=== PATIENT | male | born 1965 | race Two or more races ===

== ENCOUNTER → 2023-11-22 08:35 | Outpatient (REF) | payer OTHER, SELFPAY | LOC: HWRAD 08:35 | PROVIDERS: ATTENDING PHYSICIAN Physical Medicine & Rehabilitation; FAMILY PHYSICIAN Family Medicine | DX: M54.6 Pain in thoracic spine (principal); M54.16 Radiculopathy, lumbar region | CPT/HCPCS: 72070; 72100 ==

== ENCOUNTER 2024-07-19 01:51 | Emergency (ER) | payer OTHER, SELFPAY ==
[2024-07-19 01:58] VITALS: BP 115/81
[2024-07-19 02:06] VITALS: BP 111/85
[2024-07-19] MEDS: NSS 1000 IV (02:10)
[2024-07-19] MEDS: ADENOCARD 6 MG IV (02:10)
[2024-07-19 02:11] VITALS: BP 116/90
[2024-07-19 02:13] LABS: % Basophils 0.3 % (0-2); % Eosinophils 1.7 % (0-6); % Immature Granulocytes 0.3 % (0-0.5); % Lymphocytes 40.5 % (20.5-51.1); % Monocytes 8.7 % (1.7-9.3); % Neutrophils 48.5 % (42.2-75.2); Absolute Eosinophils 0.2 10^3/uL (0-0.7); Absolute Lymphocytes 4.2 10^3/uL (1.2-3.4); Absolute Monocytes 0.9 10^3/uL (0.1-0.6); Absolute Neutrophils 5.1 10^3/uL (1.4-6.5); Hematocrit 46.2 % (39.0-52.0); Hemoglobin 15.6 g/dL (13.0-18.0); Mean Corp Hgb Conc. 33.8 g/dL (33.0-37.0); Mean Corpuscular Hgb 28.2 pg (27.0-31.0); Mean Corpuscular Volume 83.4 fL (80.0-94.0); Mean Platelet Volume 10.5 fL (7.4-10.4); Nucleated Red Blood Cells % 0 % (-); Platelet Count 218 10^3/uL (130-400); Red Blood Cell Count 5.54 10^6/uL (4.70-6.10); Red Cell Dist. Width 13.8 % (11.5-14.5); White Blood Cell Count 10.4 10^3/uL (4.8-10.8)
--- NOTE | 2024-07-19 02:18 | ED.GENMED ---
History of Present Illness
General
Chief Complaint: Heart Rate Problem
Source: patient and spouse
Exam Limitations: none
Time Seen by Provider: 07/19/24 02:02
Nursing documentation reviewed up to this point in time: agreed with
History of Present Illness
History of Present Illness:
59-year-old male with a past medical history of diabetes and hypertension who presents to the ER for evaluation of palpitations. Patient reports symptoms started about 2 hours ago while he was sleeping. He says he woke up with palpitations and
heart racing and he checked his heart rate and it was in the 170s. It was not improving and so he came to the ER. He says he did not have any chest pain and does not have any chest pain. No shortness of breath. Denies any dizziness or
lightheadedness. He denies any other complaints. He denies having had similar symptoms in the past. 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
Past History
Past History
ED Past Medical History: GERD, HTN and NIDDM
ED Past Surgical History: None
Social History
Tobacco: Non-smoker
Alcohol: Occasional
Living: with family
Review of Systems
Review of Systems
All Other Systems: ROS reviewed and negative except as documented in HPI and ROS
Constitutional: Denies fever
Respiratory: Denies trouble breathing
Cardiac: Reports palpitations; Denies chest pain, diaphoresis or syncope
ABD/GI: Denies abdominal pain, nausea or vomiting
: Denies flank pain
Musculoskeletal: Denies edema, neck pain or back pain
Neurological: Denies headache
Phy Exam
Physical Exam
Physical Exam:
General: Awake, alert, oriented x3; no acute distress
Head: Normocephalic, atraumatic
Eyes: Conjunctiva normal
Throat: Airway intact, handling secretions
Neck: Trachea midline, no JVD
Lungs: Clear to auscultation bilaterally, no wheezing, rales, rhonchi
Heart: Tachycardia with extensively regular rhythm, no murmurs, gallops, or rubs appreciated
Abd: Soft, non distended, nontender
Neuro: No gross deficits
Skin: no rash
Extremities: Warm and well-perfused
Scores
Heart Failure Risk
Heart Failure Risk Score: Not Applicable
Heart Score for Chest Pain Patients
STEMI patient?: Not applicable
Withdrawal Assessment of Alcohol
Withdrawal Assessment Completed?: Not applicable
Course
Orders/Labs/Results
Orders:
Orders
07/19/24 01:53
EKG [Electrocardiogram (*1)] Urgent
Reason for Study: Palpitations
EKG- Treatment ONCE
07/19/24 02:03
Adenosine [Adenocard] 18 mg .ROUTE .STK-MED ONE
07/19/24 02:07
Complete Blood Count/With Diff Urgent
Comprehensive Metabolic Panel Urgent
PTT Urgent
Prothrombin Time Urgent
07/19/24 02:09
Adenosine [Adenocard] 6 mg IV NOW STA
07/19/24 02:12
EKG [Electrocardiogram (*1)] Urgent
Reason for Study: Bradycardia / Tachycardia
EKG- Treatment ONCE
07/19/24 02:15
0.9% Sodium Chloride 1000 ml [Nss] 1,000 ml IV BOLUS
07/19/24 03:55
Electrocardiogram (*1) Urgent
Reason for Study: Bradycardia / Tachycardia
EKG- Treatment ONCE
Abnormal Lab Results
07/19/24
02:07
MPV 10.5 H fL
(7.4-10.4)
Absolute Lymphs (auto) 4.2 H 10^3/uL
(1.2-3.4)
Absolute Monos (auto) 0.9 H 10^3/uL
(0.1-0.6)
Carbon Dioxide 19 L mmol/L
(22-30)
BUN 28 H mg/dl
(9-20)
Glucose 248 H mg/dl
(70-99)
ALT 58 H U/L
(0-50)
07/19/24 02:07
07/19/24 02:07
Vital Signs
Initial and Last Documented VS:
Initial Vital Signs
Temp Pulse Resp BP Pulse Ox
36.3 C 163 18 115/81 100
07/19/24 01:58 07/19/24 01:58 07/19/24 01:58 07/19/24 01:58 07/19/24 01:58
Last Documented Vital Signs
Temp Pulse Resp BP Pulse Ox
36.3 C 105 16 101/81 97
07/19/24 01:58 07/19/24 03:00 07/19/24 03:00 07/19/24 03:00 07/19/24 03:00
MDM/Problems Addressed
Differential Diagnosis Includes:
SVT, atrial fibrillation with RVR, sinus tachycardia less likely
MDM/Problems Addressed:
59-year-old male presents with palpitations. He is tachycardic with heart rate in the 160s but rest of vitals normal. Physical exam as above. EKG shows SVT. IV placed labs sent off including a CBC and a CMP. Patient was given adenosine 6 mg x 1
and converted to normal sinus rhythm. Plan observe on telemetry pending lab work, provide IV fluids. Reassess after the above.
Labs reviewed: CBC unremarkable, CMP shows random hyperglycemia 248 otherwise no clinically significant abnormalities. Clinical reassessment heart rate 100, patient says he is asymptomatic feeling much better. Continue to monitor.
Heart rate normalized, patient asymptomatic on ED observation since adenosine. Will plan to start on low-dose beta-jc, patient already has a [employer] lab technician he plans to follow-up with his [employer] lab technician. Advised to avoid caffeine and alcohol.
Spoke about return precautions all questions answered.
*Pulse Oximetry
Patient hypoxic: no
*EKG
Interpreted by ED Provider?: Yes
Heart Rate: 168
Rate: tachycardiac
Rhythm: SVT
[place]: normal axis
Interval: normal interval
QRS Pattern: normal QRS
Ischemia: non-specific ST changes
*Critical Care Note
Total Time (30-74mins, 75-104mins- exclusive of procedures): Not Applicable
Data Reviewed
Source: patient and spouse
ED Attending Note
-
Portions of this chart may have been created with voice recognition software.� Occasional wrong word or��sound alike� substitutions may have occurred due to the inherent limitations of voice recognition software.
Discharge Plan
Departure
Patient with high blood pressure during this ER visit?: No
Discharge Problem:
SVT (supraventricular tachycardia)
Instructions: Supraventricular tachycardia (SVT)
Prescriptions:
New
metoprolol succinate [Toprol XL] 25 mg tablet extended release 24 hr
12.5 mg PO DAILY Qty: 30 0RF
No Action
lisinopril 2.5 MG tablet
2.5 mg PO QPM
repaglinide [Prandin] 1 mg Tablet
1 mg PO TID
Janumet 50-1,000 mg Tablet
1 tab PO BID
Jardiance 25 mg Tablet
25 mg PO DAILY
Referrals:
Enio Motta IV, MD [Family Provider] - Follow up in 5-7 days
Activity Restrictions/Additional Instructions:
You should follow-up with your feed mill lab technician this week after this episode and arrhythmia. If you notice that you are having palpitations again or if you are having elevated heart rate, chest pain, shortness of breath, dizziness or any other
concerning symptoms return to the emergency room immediately for reassessment. You should avoid caffeine and alcohol to help keep your heart rate down.
Thank you for visiting the Emergency Department at [facility].
1. Please schedule a follow up appointment as directed. Call first thing tomorrow morning to make an appointment.
2. If indicated, please take your medications as instructed and indicated on discharge paperwork.
3. If any of your symptoms do not improve, or persist, or become more severe within 6-12 hours, please return to the emergency department for further care.
4. Please return to the emergency department if you develop a headache, neck pain/stiffness, fever greater than 100.4F, chest pain, shortness of breath, persistent nausea, vomiting, slurred speech, difficulty walking, numbness/tingling, weakness,
signs of infection or any other symptoms that are worrisome to you.
Please call [phone] if you have any questions.
Interventions
Interventions:
*Risk Screen - Suicide Last Done: 07/19/24 01:58
*General Assessment Last Done: 07/19/24 02:16
*Neglect/Abuse Screening Last Done: 07/19/24 02:16
ED- Fall Risk Assessment Last Done: 07/19/24 02:18
*ED COVID-19 Vaccine History Last Done: 07/19/24 02:16
ED- Cardiac Assessment Last Done: 07/19/24 02:25
ED- Pulmonary Assessment Last Done: 07/19/24 02:25
Discharge Date and Time
Print Language: GREEK
[2024-07-19 02:25] LABS: INR 0.91; PT 12.5 Sec (11.4-14.6)
[2024-07-19 02:56] LABS: ALT (SGPT) 58 U/L (0-50); AST (SGOT) 45 U/L (17-59); Albumin 4.6 g/dl (3.5-5.0); Alkaline Phosphatase 102 U/L (38-126); Blood Urea Nitrogen 28 mg/dl (9-20); Calcium 9.9 mg/dl (8.4-10.2); Carbon Dioxide 19 mmol/L (22-30); Chloride 103 mmol/L (98-107); Estimated Creatinine Clearance 96 ml/min; Glucose 248 mg/dl (70-99); Potassium 4.9 mmol/L (3.5-5.1); Sodium 137 mmol/L (135-145); Total Bilirubin 1.1 mg/dl (0.2-1.3); Total Protein 6.9 g/dl (6.3-8.2); eGFR > 60.00
[2024-07-19 03:00] VITALS: BP 101/81
[2024-07-19 04:01] VITALS: BP 92/79
== END 2024-07-19 04:16 | disposition home or self-care (01) ==
LOC: EMR 01:51
PROVIDERS: EMERGENCY PHYSICIAN Emergency Medicine; FAMILY PHYSICIAN Family Medicine
DX: I47.10 Supraventricular tachycardia, unspecified (principal); I10 Essential (primary) hypertension; E11.9 Type 2 diabetes mellitus without complications; K21.9 Gastro-esophageal reflux disease without esophagitis
CPT/HCPCS: 96374; 96361; 99284; 80053; 85025; 85610; 85730; 93005; J0153